=== PATIENT | female | born 2000 | race Caucasian/White ===

== ENCOUNTER 2024-12-07 10:01 | Outpatient (CLI) | payer OTHER, MEDICAID, SELFPAY ==
--- NOTE | 2024-12-07 10:26 | US_ITS ---
WS: [id number] US pelvis lmt w transvag HISTORY: INCOMPLETE MISCARRIAGE COMPARISON: None available. Uterus: 6.8 cm x 4.9 cm x 4.1 cm. Normal size anteverted uterus. No fibroid or mass. Endometrium: 0.6 cm. Thin uniform endometrium. No retained products of conception. Right ovary: Not visualized. Left ovary: 4.1 cm x 3.8 cm x 3.7 cm. Complex cystic area within the LEFT ovary is probably hemorrhagic cyst. Hemorrhagic cyst measures 3.2 x 3.0 x 3.2 cm. Normal vascularity. No free fluid in the cul-de-sac. US/US pelvis lmt w transvag IMPRESSION: 1. Normal thin endometrium. No retained products of the conception. 2. Hemorrhagic LEFT ovarian cyst, 3.2 x 3.0 x 3.2 cm. 3. RIGHT ovary not visualized.
== END 2024-12-07 10:02 | disposition home or self-care (01) ==
LOC: RAD 10:09
PROVIDERS: Family Provider Nurse Practitioner Family; PCP Nurse Practitioner Family; Visit Provider Nurse Practitioner Family
DX: O03.4 Incomplete spontaneous abortion without complication (principal); N83.202 Unspecified ovarian cyst, left side
CPT/HCPCS: 76830; 76857